=== PATIENT | female | born 1940 | race Caucasian/White ===

== ENCOUNTER 2017-08-20 15:22 | Emergency (ER) | payer OTHER ==
[2017-08-20 15:39] VITALS: RESP 18; TEMP 97.8
[2017-08-20 15:48] VITALS: BP 180/100; PULSE 68; O2SAT 98
== END 2017-08-20 15:55 | disposition home or self-care (01) | DRG 605 ==
LOC: ED 15:22
DX: S91.115A Laceration without foreign body of left lesser toe(s) without damage to nail, initial encounter (principal); W45.8XXA Other foreign body or object entering through skin, initial encounter; W27.8XXA Contact with other nonpowered hand tool, initial encounter
CPT/HCPCS: 99283